=== PATIENT | female | born 1935 | race Caucasian/White ===

== ENCOUNTER → 2023-06-15 08:29 | Outpatient (REF) | payer OTHER, SELFPAY | LOC: RAD 08:29 | PROVIDERS: ATTENDING PHYSICIAN Family Medicine | DX: R73.01 Impaired fasting glucose (principal); E03.9 Hypothyroidism, unspecified; E78.2 Mixed hyperlipidemia; I10 Essential (primary) hypertension; D68.69 Other thrombophilia; I48.91 Unspecified atrial fibrillation; M79.602 Pain in left arm; M54.2 Cervicalgia | CPT/HCPCS: 72052; 73030 ==

== ENCOUNTER → 2025-03-05 10:01 | Outpatient (REF) | payer OTHER, SELFPAY | LOC: RAD 10:01 | PROVIDERS: ATTENDING PHYSICIAN Family Medicine | DX: R60.0 Localized edema (principal) | CPT/HCPCS: 93970 ==